=== PATIENT | female | born 1940 | race Caucasian/White ===

== ENCOUNTER 2019-09-20 12:11 | Inpatient (IN) | payer OTHER ==
[~2019-09-20] VITALS: Ht 170.2 cm; Wt 49.0 kg
[2019-09-20 12:11] VITALS: BP 108/62
[~2019-09-20 12:11] MED LIST: ALENDRONATE SOD70 MG PO; AMARYL1 MG PO; ASPIRIN EC81 M1 PO; AVAPRO 150 MG150 M1 PO; FLUTICASONE PRO16 GM INH; FOSAMAX 10 MG10 MG; GLUCOPHAGE XR500 MG PO; LEVOXYL75 MCG PO; LIPITOR80 MG PO; PLAVIX 75 MG TA75 MG PO; PRILOSEC 20 MG20 MG PO
[2019-09-20 12:58] LABS: URINE BILIRUBIN NEGATIVE (Negative); URINE BLOOD NEGATIVE (Negative); URINE CLARITY CLEAR; URINE COLOR YELLOW; URINE GLUCOSE-RANDOM* NEGATIVE (Negative); URINE KETONES TRACE (Negative); URINE LEUKOCYTES-REFLEX NEGATIVE (Negative); URINE NITRITE-REFLEX NEGATIVE (Negative); URINE PROTEIN (DIPSTICK) NEGATIVE (Negative); URINE SPECIFIC GRAVITY 1.025 (1.005-1.035); URINE UROBILINOGEN 0.2 E.U./dl (0.2-1.0)
[2019-09-20 14:01] LABS: ABSOLUTE NEUTROPHILS 9.9 thou/uL (1.4-8.2); BASOPHILS 0.5 % (0.0-2.0); EOSINOPHILS 4.5 % (0.0-3.0); HEMATOCRIT 32.8 % (37.0-47.0); HEMOGLOBIN 10.7 gm/dL (12.0-15.0); LYMPHOCYTES 11.4 % (24.0-44.0); MCH 30.6 pg (26.0-34.0); MCHC 32.7 g/dL (28.0-37.0); MCV 93.7 fL (80.0-100.0); MONOCYTES 4.6 % (1.0-8.0); PLATELET COUNT 370 thou/uL (150-400); RBC 3.51 mil/uL (4.20-5.00); RDW 13.7 % (10.5-14.5); WBC 12.5 thou/uL (4.0-11.0)
[2019-09-20 14:10] LABS: ANION GAP 12 mmol/L (7-16); BUN 57 mg/dL (7-18); CALCIUM 10.9 mg/dL (8.5-10.1); CHLORIDE 102 mmol/L (98-107); CO2 23 mmol/L (21-32); CREATININE 2.6 mg/dL (0.6-1.0); GLUCOSE 143 mg/dL (74-106); POTASSIUM 5.5 mmol/L (3.5-5.1); SODIUM 137 mmol/L (136-145)
[2019-09-20 14:21] LABS: ALBUMIN 3.5 g/dL (3.4-5.0); LIPASE 256 U/L (73-393); SGOT 19 U/L (15-37); SGPT 15 U/L (30-65); TOTAL BILIRUBIN 0.6 mg/dL (<0.1-1.0); TOTAL PROTEIN 8.2 g/dL (6.4-8.2); TROPONIN-I <0.06 ng/mL (<0.06)
[2019-09-20] MEDS ORDERED: NITROSTAT0.4 M1 SUBLING (14:31)
[2019-09-20] MEDS ORDERED: SYNTHROID88 MC1 PO (14:32)
[2019-09-20] MEDS ORDERED: PLAVIX 75 MG TA75 MG PO (14:38)
[2019-09-20 17:19] LABS: PROTIME 10.6 Seconds (9.3-11.4)
[2019-09-20 17:34] VITALS: BP 126/43
[2019-09-20 18:58] LABS: HEMATOCRIT 25.9 % (37.0-47.0); MCH 31.1 pg (26.0-34.0); MCHC 32.6 g/dL (28.0-37.0); MCV 95.4 fL (80.0-100.0); RBC 2.72 mil/uL (4.20-5.00); RDW 13.6 % (10.5-14.5)
[2019-09-20 18:59] LABS: HEMOGLOBIN 8.5 gm/dL (12.0-15.0)
[2019-09-20 19:56] VITALS: BP 104/40
[2019-09-20 20:26] VITALS: BP 85/61
[2019-09-21] VITALS (7 sets, daily range): BP systolic 105–133; BP diastolic 46–58
[2019-09-21] MEDS ORDERED: EXCEDRIN MIGRA1 EAC1 PO (02:54)
--- NOTE | 2019-09-21 04:14 | NUR ---
PT NEW ADMIT. AROUND 2029. IN COMPANY OF A FRIEND. PT ALERT AND ORIENTED. LOW BP. NS AT 100 STARTED PER ORDERS. 2300 METOPROLOL HELD. NOTED STEADY IMPROVEMENT IN VS. CURRENTLY STABLE. PT EDUCATED ABOUT THE CALL LIGHT SYSTEM. CONSENT FORMS SIGNED. ORDERS ACKNOWLEDGE . HOME MEDS SENT TO PHARMACY. PT CURRENTLY STABLE. DENIES, PAIN, NAUSEA, AND VOMITING. VOIDING TO BATHROOM. SR ON THE MONITOR. WILL CONTINUE TO FOLLOW POC.
[2019-09-21 05:22] LABS: ABSOLUTE NEUTROPHILS 5.2 thou/uL (1.4-8.2); BASOPHILS 1.1 % (0.0-2.0); EOSINOPHILS 5.6 % (0.0-3.0); HEMATOCRIT 25.7 % (37.0-47.0); HEMOGLOBIN 8.4 gm/dL (12.0-15.0); LYMPHOCYTES 22.7 % (24.0-44.0); MCH 31.4 pg (26.0-34.0); MCHC 32.8 g/dL (28.0-37.0); MCV 95.7 fL (80.0-100.0); MONOCYTES 9.2 % (1.0-8.0); PLATELET COUNT 280 thou/uL (150-400); POLYS 61.4 % (36.0-66.0); RBC 2.68 mil/uL (4.20-5.00); RDW 13.8 % (10.5-14.5); WBC 8.5 thou/uL (4.0-11.0)
[2019-09-21 05:25] LABS: ALBUMIN 2.7 g/dL (3.4-5.0); CREATININE 1.8 mg/dL (0.6-1.0); MAGNESIUM 1.6 mg/dL (1.8-2.4); POTASSIUM 4.6 mmol/L (3.5-5.1); TOTAL BILIRUBIN 0.5 mg/dL (<0.1-1.0); TOTAL PROTEIN 6.3 g/dL (6.4-8.2)
[2019-09-21 05:40] LABS: CALCIUM 8.6 mg/dL (8.5-10.1)
--- NOTE | 2019-09-21 08:30 | EKG ---
[place] [address] [facility] [place] [address] ELECTROCARDIOGRAM REPORT Name: FRANCISCO MILLS Room #: 213-P ADM IN M.R.#: [id number] Admission: 09/20/19 Attend Phys: Maximino De La Fuente MD Discharge: Date of : 40 Report #: [id number] THIS REPORT FOR: //name// [facility] ED Test Date: 2019-09-20 Test Time: 12:35:29 Pat Name: FRANCISCO MILLS Department: Room: 213 Gender: F Pantry Attendant: KLAUS : 1940 Requested By: Jossy Dwyer Order Number: [id number] MD: Edward Crews Measurements Intervals [place] Rate: 82 P: 53 MA: 102 QRS: 73 QRSD: 109 T: -19 QT: 372 QTc: 435 Interpretive Statements Sinus rhythm Nonspecific ST and T wave abnormality Compared to ECG 01/21/2016 18:42:[address] and T wave abnormality is now present Electronically Signed On 09-21-2019 8:29:56 JEWELRY INSPECTOR by Edward Crews [email or web address] <ELECTRONICALLY SIGNED> By: Edward Crews MD, [facility] 09/21/19 0829 1235 1235 Edward Crews MD, [facility] /EPI
--- NOTE | 2019-09-21 08:39 | EKG ---
[place] [address] [facility] [address] [place] [address] ELECTROCARDIOGRAM REPORT Name: FRANCISCO MILLS Room #: 213-P ADM IN M.R.#: [id number] Admission: 09/20/19 Attend Phys: Maximino De La Fuente MD Discharge: Date of : 40 Report #: [id number] THIS REPORT FOR: //name// [facility] ED Test Date: 2019-09-20 Test Time: 16:42:37 Pat Name: FRANCISCO MILLS Department: Room: 213 Gender: F Special Librarian: KLAUS : 1940 Requested By: Jossy Dwyer Order Number: [id number] MD: Edward Crews Measurements Intervals [place] Rate: 120 P: 94 MO: 96 QRS: 96 QRSD: 122 T: 254 QT: 317 QTc: 448 Interpretive Statements Sinus tachycardia Nonspecific intraventricular conduction delay Repol abnrm, severe global ischemia (LM/MVD) Compared to ECG 01/21/2016 18:42:50 No significant change was found Electronically Signed On 09-21-2019 8:38:30 PATIENT RELATIONS COORDINATOR by Edward Crews [email or web address] <ELECTRONICALLY SIGNED> By: Edward Crews MD, [facility] 09/21/19 0838 1642 164 Edward Crews MD, [facility] /EPI
--- NOTE | 2019-09-21 08:39 | EKG ---
[place] [address] [facility] [place] [address] ELECTROCARDIOGRAM REPORT Name: FRANCISCO MILLS Room #: 213-P ADM IN M.R.#: [id number] Admission: 09/20/19 Attend Phys: Maximino De La Fuente MD Discharge: Date of : 40 Report #: [id number] THIS REPORT FOR: //name// [facility] ED Test Date: 2019-09-20 Test Time: 16:31:31 Pat Name: FRANCISCO MILLS Department: Room: 213 Gender: F Resident Care Technician: KLAUS : 1940 Requested By: Jossy Dwyer Order Number: [id number] MD: Edward Crews Measurements Intervals [place] Rate: 113 P: 103 [place]: 94 QRS: 94 QRSD: 123 T: 240 QT: 311 QTc: 427 Interpretive Statements Sinus tachycardia Nonspecific intraventricular conduction delay Repol abnrm, severe global ischemia (LM/MVD) Baseline wander in lead(s) V6 Compared to ECG 01/21/2016 18:42:50 ST and T wave abnormality is more pronounced Electronically Signed On 09-21-2019 8:38:17 BIG 6 DEALER by Edward Crews [email or web address] <ELECTRONICALLY SIGNED> By: Edward Crews MD, [facility] 09/21/19 0838 1631 1631 Edward Crews MD, [facility] /EPI
--- NOTE | 2019-09-21 08:47 | EKG ---
[place] [address] [address] [facility] [place] [address] ELECTROCARDIOGRAM REPORT Name: FRANCISCO MILLS Room #: 213-P ADM IN M.R.#: [id number] Admission: 09/20/19 Attend Phys: Maximino De La Fuente MD Discharge: Date of : 40 Report #: [id number] THIS REPORT FOR: //name// [facility] Test Date: 2019-09-21 Test Time: 08:12:12 Pat Name: FRANCISCO MILLS Department: Room: 213 Gender: F Search Developer: WILLIAM : 1940 Requested By: Pauline Moscoso Order Number: [id number] MD: Edward Crews Measurements Intervals [place] Rate: 68 P: 24 DE: 126 QRS: 68 QRSD: 111 T: 21 QT: 405 QTc: 431 Interpretive Statements Sinus rhythm No significant abnormality Compared to ECG 01/21/2016 18:42:50 ST and T wave abnormality is no longer present Electronically Signed On 09-21-2019 8:46:54 HEAD CASHIER by Edward Crews [email or web address] <ELECTRONICALLY SIGNED> By: Edward Crews MD, [facility] 01/845 1 1 Edward Crews MD, [facility] /EPI
[2019-09-21 10:30] LABS: % SATURATION 10 % (20-39); IRON 18 ug/dL (50-170); TIBC 188 ug/dL (250-450)
--- NOTE | 2019-09-21 10:56 | 2DMMODE ---
[facility] [address] [place] [address] 2 D/M-MODE ECHOCARDIOGRAM Name: FRANCISCO MILLS Damián Room #: 213-P ADM IN M.R.#: [id number] Admission: 09/20/19 Attend Phys: Maximino De La Fuente MD Discharge: Date of : 40 Report #: [id number] THIS REPORT FOR: //name// APPROVED REPORT Study performed: 09/21/2019 10:08:34 EXAM: Comprehensive 2D, Doppler, and color-flow Echocardiogram Patient Location: Bedside Room #: 213 Status: routine BSA: 1.56 HR: 66 bpm BP: 118/53 mmHg Rhythm: NSR Other Information Study Quality: Good Indications Abnormal ECG Diabetes CAD Syncope Hypertension/HDD CABG 2D Dimensions RVDd: 34.01 mm IVSd: 9.47 (7-11mm) LVOT Diam: 18.39 (18-24mm) LVDd: 49.68 mm PWd: 8.80 (7-11mm) Ascending Ao: 27.56 (22-36mm) LVDs: 33.92 (25-40mm) Aortic Root: 31.01 mm IVC: 23.00 mm Volumes Left Atrial Volume (Systole) Single Plane 4CH: 72.19 mL Single Plane 2CH: 62.49 mL LA ESV Index: 50.00 mL/m2 Aortic Valve AoV Peak Chase.: 1.32 m/s AO Peak Gr.: 6.93 mmHg LVOT Max P.51 mmHg LVOT Max V: 0.79 m/s ALFREDA Vmax: 1.60 cm2 [facility] [address] [place] [address] 2 D/M-MODE ECHOCARDIOGRAM Name: JESÚSDelbertFRANCISCO Damián Room #: 213-P [facility] IN [facility].#: [id number] Admission: 09/20/19 Attend Phys: Maximino De La Fuente MD Discharge: Date of : 40 Report #: [id number] Mitral Valve E/A Ratio: 1.3 MV Decel. Time: 177.98 ms MV E Max Chase.: 0.89 m/s MV A Chase.: 0.67 m/s MV PHT: 51.61 ms IVRT: 96.89 ms Pulmonary Valve PV Peak Chase.: 0.85 m/s PV Peak Gr.: 2.86 mmHg Pulmonary Vein P Vein S: 0.52 m/s P Vein A: 0.26 m/s P Vein D: 0.50 m/s P Vein A Dur.: 87.7 msec P Vein S/D Ratio: 1.04 Tricuspid Valve TR Peak Chase.: 2.51 m/s TR Peak Gr.: 25.26 mmHg PA Pressure: 35.00 mmHg Left Ventricle The left ventricle is normal size. There is normal LV segmental wall motion. There is normal left ventricular wall thickness. The left ventricular systolic function is normal. The left ventricular ejection fraction is within the normal range. LVEF is 55-60%. The left ventricular diastolic function is normal. Right Ventricle The right ventricle is normal size. The right ventricular systolic function is normal. Atria Left atrium is dilated. Right atrium is at the upper limits of normal. Aortic Valve The aortic valve is normal in structure. The Aortic valve is sclerotic. Trace aortic regurgitation. There is no aortic valvular stenosis. Mitral Valve The mitral valve is normal in structure. Mild mitral regurgitation. No evidence of mitral valve stenosis. [facility] [address] [place] [place] [address] 2 D/M-MODE ECHOCARDIOGRAM Name: FRANCISCO MILLS Room #: 213-P ADM IN M.R.#: [id number] Admission: 09/20/19 Attend Phys: Maximino De La Fuente MD Discharge: Date of : 40 Report #: [id number] Tricuspid Valve The tricuspid valve is normal in structure. There is trace tricuspid regurgitation. Estimated PAP 35 mmHg. There is mild pulmonary hypertension. Pulmonic Valve The pulmonary valve is normal in structure. Trace pulmonic regurgitation. Great Vessels The aortic root is normal in size. IVC is dilated and collapses >50% with inspiration. Pericardium There is no pericardial effusion. <Conclusion> The left ventricle is normal size. LVEF is 55-60%. The left ventricular diastolic function is normal. The right ventricle is normal size. Left atrium is dilated. The aortic valve is normal in structure. The Aortic valve is sclerotic. Trace aortic regurgitation. There is no aortic valvular stenosis. There is trace tricuspid regurgitation. Estimated PAP 35 mmHg. There is mild pulmonary hypertension. There is no pericardial effusion. <ELECTRONICALLY SIGNED> By: Adelso Gomez MD, FACC 09/21/19 1055 1055 1055 Adelso Gomez MD, FACC /INF
--- NOTE | 2019-09-21 12:56 | NUR ---
Case opened to follow for dc planning. Pt is a&ox4 and indicates she lives alone independently. She normally sees cardiology at [facility]. Pt evaluated by PT and FWW recommended for home use. Pt is agreeable. Referral and script faxed to [facility] as they are in network with her insurance plan. They will deliever today. No hh or outpt therapy recommended at this time. The pt does not intend to be homebound. She will f/u with her pcp should weakness or ankle pain continue. Possible dc later today or tomorrow. Cardiology workup in progress.
--- NOTE | 2019-09-21 22:24 | NUR ---
ASSUMED CARE PT SHIFT CHANGE. ASSESSMENTS CHARTED. MEDS GIVEN PER OCT. PT ALERT AND ORIENTED .VSS. C/O PAIN RIGHT FOOT, DENIES NEED FOR PAIN MEDS. WORKED WITH PHYS THERAPY THIS SHIFT TOLERATING WELL. O2 SATS WNL ON ROOM AIR. STOOL SAMPLE COLLECTED-SEE RESULTS. PT TO HAVE EGD IN AM- CONSENT SIGNED. NPO AFTER MIDNIGHT. PT UP IN ROOM WITH WALKER SBA, TOLERATING WELL. DENIES NEEDS AT THIS TIME. REPORT PASSED ONTO ADMINISTRATIVE SALES ASSISTANT NURSE LENA AT APPROX 2200
[2019-09-22 04:54] VITALS: BP 121/55
--- NOTE | 2019-09-22 07:53 | NUR ---
RECEIVED REPORT FROM [facility] DAY SHIFT RN.ASSUMED CARE AT 2230.PATIENT A/O X 3.NPO SINCE MIDNIGHT FOR A POSSIBLE EGD TODAY.MONITOR SHOWS SR.POC CONTINUED.
[2019-09-22 08:00] VITALS: BP 107/45
[2019-09-22 11:00] VITALS: BP 118/54
[2019-09-22 14:40] VITALS: BP 118/54
[2019-09-22 16:09] VITALS: BP 133/46
--- NOTE | 2019-09-22 16:40 | NUR ---
PT CARE ASSUMED AT 0700. ASSESSMENTS CHARTED. PT TO EGD AT 1100. PT TESTED FOR CELIAC AND H. PYLORI. SHEY ROBERTS OBSERVED. MILIND BERNABE DELIVERED TO PTS ROOM. PT DISCHARGED.
--- NOTE | 2019-09-25 16:07 | PATH ---
[facility] [place] [address] PATHOLOGY RPT PROCEDURE Name: FRANCISCO MILLS Room #: 213-P DIS IN M.R.#: [id number] Admission: 09/20/19 Date of : 40 Discharge: 09/22/19 Report #: [id number] Path Case #: [id number] [facility] Accession Number: [id number] . 01 Material submitted: . PART A: small bowel - BX OF SMALL BOWEL PART B: stomach - BX OF GASTRITIS . 01 Clinical history: . Diarrhea, anemia, history of ulcers, dysphagia, Schatzki's ring, gastritis, hiatus hernia. . 02 Diagnosis: A. Small bowel mucosa, rule out celiac disease, endoscopic biopsy: - No diagnostic abnormalities present. - Negative for villous blunting or increase in intraepithelial lymphocytes. . B. Gastritic mucosa, gastritis, endoscopic biopsy: - Mild chronic gastritis with features of reactive gastropathy. - Negative for intestinal metaplasia or atrophy. - Negative for H. pylori (properly controlled immunohistochemical stain performed). (IUV:pit 09/25/2019) QTP 09/25/2019 1246 Local . 02 Electronically signed: . Lynne Brizuela MD, Pathologist NPI- [id number] . 01 Gross description: . A. Received in formalin labeled "Francicso Mills, LULU of small bowel to rule out celiac" is a 1.2 x 0.6 x 0.1 cm aggregate of grimes-brown mucosa fragments. The specimen is submitted in A1. . B. Received in formalin labeled "Francisco Mills, BX of gastritis to rule out H. pylori" is a 0.7 x 0.5 x 0.1 cm aggregate of grimes-brown mucosa fragments. The specimen is submitted in B1. ([facility]; 09/24/2019) [facility] 09/24/2019 1119 Local . 02 Pathologist provided ICD-10: K29.50, R19.7, D64.9, Z87.19, R13.10 . 02 CPT . 663888, 223306, T37158 Specimen Comment: A courtesy copy of this report has been sent to [phone], [id number], [place] [address] PATHOLOGY RPT PROCEDURE Name: FRANCISCO MILLS Damián Room #: 213-P DIS IN M.R.#: [id number] Admission: 09/20/19 Date of : 40 Discharge: 09/22/19 Report #: [id number] Path Case #: [id number] Specimen Comment: [phone], Specimen Comment: Report sent to , and Performed at: [address], [place], [place] [id number] MD Ronald Peguero MD Phone: [phone] Performed at: [address] [id number] MD Lynne Brizuela MD Phone: [phone]
--- NOTE | 2019-10-02 12:14 | P ---
[facility] [place] [address] PROCEDURE REPORT Name: FRANCISCO MILLS Room #: 213-P [facility] IN M.R.#: [id number] Admission: 09/20/19 Attend Phys: Maximino De La Fuente MD Discharge: 09/22/19 Date of : 40 Report #: [id number] THIS REPORT FOR: //name// CC: Adelso Batista MD INPATIENT UPPER ENDOSCOPY REPORT BRIEF HISTORY: The patient is a 79-year-old woman who has a normochromic anemia. However, she does have a history of ulcer disease and she also has had change in bowel habits with diarrhea. In addition, she reports intermittent episodes of dysphagia for solids such as beef. PREOPERATIVE DIAGNOSES: Anemia, diarrhea, history of ulcer disease as well as dysphagia. POSTOPERATIVE DIAGNOSES: 1. Mild erythematous gastritis, without ulceration or erosion. 2. Small hiatus hernia. 3. Wijj-hl-uawtkdsp Schatzki ring, gastroesophageal junction. MEDICATIONS: Deep sedation with propofol per anesthesia. SPECIMENS: 1. Small bowel biopsies to rule out celiac disease regarding diarrhea. 2. Biopsies of gastritis, rule out Helicobacter pylori, history of prior ulcer disease. ESTIMATED BLOOD LOSS: 3 mL. PROCEDURE: EGD and [place] dilation. FINDINGS: Prior to propofol sedation, procedure of upper endoscopy discussed with the patient as well as potential risks and its complications. She indicates she understands and desires to proceed. DESCRIPTION OF PROCEDURE: With the patient in the left lateral decubitus position, the Olympus video endoscope was inserted in the cervical esophagus under direct vision without difficulty. Examination of this organ through its entire style revealed normal esophageal mucosa down the squamocolumnar junction. Squamocolumnar junction was inspected and noted to be unremarkable. Right squamocolumnar junction was a yafs-og-skmuxujy Schatzki ring. There was definite luminal encroachment, but the scope passed easily through the ring into a small hiatus hernia. Hiatus hernia was 2-3 cm in greatest dimension. The mucosa and hernia was unremarkable. Scope was advanced in the stomach, was [facility] [address] [place] [address] PROCEDURE REPORT Name: RAMONLALITOLUPEFRANCISCO Mandujano Damián Room #: 213-P DIS IN M.R.#: [id number] Admission: 09/20/19 Attend Phys: Maximino De La Fuente MD Discharge: 09/22/19 Date of : 40 Report #: [id number] examined on end view as well as retroflexed views. There was streaky erythema in the antrum, but no ulcers or erosions. In view of her history of ulcer disease, biopsies obtained to evaluate for H. pylori. Upon retroflexion, the hiatus hernia and ring were seen, but no other abnormalities were identified. Pylorus normal. Duodenal bulb was normal. The scope was advanced to the third portion of duodenum was unremarkable. The mucosa was intact. I did not see any ulcers, AVMs or bleeding lesions. Due to her diarrhea, especially with certain foods, biopsies obtained to evaluate for celiac disease. At that point, the scope was slowly withdrawn and careful circumferential views confirmed the above findings. The patient tolerated the procedure well. Subsequently, she was dilated with passage of 50-[place] dilator. There was no resistance. DISPOSITION: The patient with normochromic anemia. She does have an elevated sed rate. Iron studies in elevation of sed rate, I think are most suggestive of anemia of chronic illness. Her stool was Hemoccult negative. We will follow up on biopsy specimen with regards to celiac disease. She can return for dilation on an as needed basis if she should develop recurrent symptoms of dysphagia. She does take metformin and she does report the diarrhea did improve when her dosage of metformin was decreased. It is certainly possible metformin may be responsible for her diarrhea. However, in view of her GI symptoms, we will follow up on biopsies as noted above. <ELECTRONICALLY SIGNED> By: Joe Turcios MD 10/02/19 1214 1331 1929 Joe Turcios MD /nt
== END 2019-09-22 17:17 | disposition home or self-care (01) | DRG 391 ==
LOC: ER 12:11 → 2N 15:36 → EROBS 15:36 → 2N 18:30 → EROBS 18:47 → 2N 19:57 → ENTRNSPT 09-21 09:41 → DELTRNSPT 09-21 09:46 → 2N 09-22 17:17
PROVIDERS: Nurse Practitioner; Physician Assistant; ADMIT Internal Medicine
DX: K29.70 Gastritis, unspecified, without bleeding (principal); E43 Unspecified severe protein-calorie malnutrition; N17.9 Acute kidney failure, unspecified; Z68.1 Body mass index [BMI] 19.9 or less, adult; I95.1 Orthostatic hypotension; E78.00 Pure hypercholesterolemia, unspecified; K52.9 Noninfective gastroenteritis and colitis, unspecified; E86.0 Dehydration; K21.9 Gastro-esophageal reflux disease without esophagitis; E87.5 Hyperkalemia; M25.561 Pain in right knee; M79.671 Pain in right foot; K44.9 Diaphragmatic hernia without obstruction or gangrene; K22.2 Esophageal obstruction; I25.10 Atherosclerotic heart disease of native coronary artery without angina pectoris; E78.5 Hyperlipidemia, unspecified; N18.3 Chronic kidney disease, stage 3 (moderate); K52.839 Microscopic colitis, unspecified; D50.9 Iron deficiency anemia, unspecified; E11.22 Type 2 diabetes mellitus with diabetic chronic kidney disease; I12.9 Hypertensive chronic kidney disease with stage 1 through stage 4 chronic kidney disease, or unspecified chronic kidney disease; E03.9 Hypothyroidism, unspecified; D72.829 Elevated white blood cell count, unspecified; Z79.82 Long term (current) use of aspirin; Z91.040 Latex allergy status; Z79.899 Other long term (current) drug therapy; Z79.84 Long term (current) use of oral hypoglycemic drugs; Z87.891 Personal history of nicotine dependence; Z72.89 Other problems related to lifestyle; Z86.73 Personal history of transient ischemic attack (TIA), and cerebral infarction without residual deficits; Z95.1 Presence of aortocoronary bypass graft; Z85.820 Personal history of malignant melanoma of skin; Z98.49 Cataract extraction status, unspecified eye; Z79.4 Long term (current) use of insulin; Z87.11 Personal history of peptic ulcer disease
CPT/HCPCS: 10081; 62110; 62900; 70005